=== PATIENT | female | born 1965 | race Caucasian/White ===

== ENCOUNTER 2024-04-17 08:47 | Outpatient (CLI) | payer OTHER | END 2024-04-17 08:48 | disposition home or self-care (01) | LOC: CSHRAD 08:47 | PROVIDERS: ATTEND Nurse Practitioner | DX: R31.29 Other microscopic hematuria (principal); M54.50 Low back pain, unspecified; N94.89 Other specified conditions associated with female genital organs and menstrual cycle | CPT/HCPCS: 74176 ==